=== PATIENT | female | born 1985 | race Caucasian/White ===

== ENCOUNTER 2017-01-08 15:10 | Inpatient (IN) | payer BC, OTHER ==
[~2017-01-08] VITALS: Ht 170.2 cm; Wt 54.0 kg
[2017-01-08 15:16] VITALS: BP_SYST 132
[2017-01-08] MEDS ORDERED: NACL 0.9% 1,000 ML IV ONE (15:53)
[2017-01-08] MEDS ORDERED: ONDANSETRON HCL 4 MG/2 ML VIAL IVP ONE (16:00)
[2017-01-08] MEDS ORDERED: DIPHENHYDRAMINE INJ 50 MG/ML VIAL IVP ONE (16:00)
[2017-01-08] MEDS ORDERED: MORPHINE 4 MG/ML INJ. SYRINGE IVP ONE (16:00)
[2017-01-08 16:11] LABS: BASOPHILS # (AUTO) 0.1 K/uL (0.0-0.2); BASOPHILS % (AUTO) 1.1 % (0.0-2.0); EOSINOPHILS # (AUTO) 0.1 K/uL (0.0-0.4); EOSINOPHILS % (AUTO) 1.1 % (0.0-4.0); HEMATOCRIT 39.8 % (36-48); HEMOGLOBIN 13.6 g/dL (12.0-16.0); LYMPHOCYTES # (AUTO) 1.4 K/uL (1.0-5.5); LYMPHOCYTES % (AUTO) 24.2 % (20.5-51.5); MEAN CORPUSCULAR HEMOGLOBIN 31 pg (27-31); MEAN CORPUSCULAR HGB CONC 34 % (32-36); MEAN CORPUSCULAR VOLUME 89 fL (79.0-98.0); MONOCYTES # (AUTO) 0.5 K/uL (0.0-1.0); MONOCYTES % (AUTO) 8.6 % (1.7-9.3); NEUTROPHILS # (AUTO) 3.7 K/uL (1.8-7.7); PLATELET COUNT (AUTO) 177 K/uL (130-430); RED BLOOD CELL COUNT(AUTO) 4.46 MIL/uL (4.2-6.2); RED CELL DISTRIBUTION WIDTH 12.4 % (9.0-15.0); WHITE BLOOD COUNT (AUTO) 5.8 K/uL (4.8-10.8)
[2017-01-08 16:23] LABS: CALCIUM 8.9 mg/dL (8.4-11.0); CREATININE 0.52 mg/dL (0.55-1.30)
[2017-01-08 16:27] LABS: ALBUMIN 4.3 g/dL (3.4-4.8)
[2017-01-08 16:34] LABS: BILIRUBIN,URINE 1+ (NEGATIVE); BLOOD, URINE 1+ (NEGATIVE); CLARITY/URINE HAZY (CLEAR); COLOR,URINE YELLOW (YELLOW); GLUCOSE,URINE NEGATIVE (NEGATIVE); KETONES,URINE 3+ (NEGATIVE); LEUKOCYTE ESTERASE ,URINE TRACE (NEGATIVE); NITRITE, URINE NEGATIVE (NEGATIVE); PH,URINE 6.5 (5.0-8.0); PROTEIN URINE NEGATIVE (NEGATIVE)
[2017-01-08] MEDS ORDERED: HYDROmorphone 1 MG INJ. 1 MG/ML AMPUL IVP ONE (16:45)
[2017-01-08] MEDS ORDERED: POTASSIUM CHLORIDE 20 MEQ/PKT PACKET PO ONE (16:45)
[2017-01-08 17:11] LABS: BACTERIA,URINE FEW /HPF (None Seen); MUCUS,URINE 3+ /LPF (None Seen)
[2017-01-08 17:12] LABS: YEAST,URINE Few /HPF (None Seen)
[2017-01-08] MEDS ORDERED: DICYCLOMINE HCL 20 MG/2 ML AMP IM ONE (18:00)
[2017-01-08] MEDS ORDERED: cefTRIAXone 1 GM in D5W 50 ML IV ONE (19:00)
[2017-01-08] MEDS ORDERED: cefTRIAXone 1 GM VIAL ONE (19:16)
[2017-01-08] MEDS ORDERED: ACETAMINOPHEN 325 MG TABLET PO PRN (19:30)
[2017-01-08 19:38] VITALS: BP_SYST 138
[2017-01-08] MEDS ORDERED: LOPERAMIDE HCL 2 MG CAPSULE PO PRN (19:45)
[2017-01-08] MEDS: HYDROmorphone 1 MG INJ. 1 MG/ML AMPUL IVP PRN (20:30)
[2017-01-08] MEDS: FAMOTIDINE 20 MG TABLET PO SCH (20:31)
[2017-01-08] MEDS: POTASSIUM CHLORIDE 20 MEQ TAB.PRT.SR PO SCH (20:31)
[2017-01-08] MEDS: metroNIDAZOLE 250 MG TABLET PO SCH (20:31)
[2017-01-08] MEDS: sulfASALAZINE 500 MG TABLET (AZULFIDINE) PO SCH (20:31)
[2017-01-08] MEDS: LACTOBACILLUS RHAMNOSUS GG 1 CAP CAPSULE PO SCH (20:31)
[2017-01-08] MEDS: LR 1,000 ML IV SCH (20:32)
[2017-01-08] MEDS: ONDANSETRON HCL 4 MG/2 ML VIAL IVP PRN (20:45)
[2017-01-09] MEDS: DIPHENHYDRAMINE INJ 50 MG/ML VIAL IVP PRN ×4 (00:09→21:33)
[2017-01-09] MEDS: sulfASALAZINE 500 MG TABLET (AZULFIDINE) PO SCH ×5 (00:09→23:14)
[2017-01-09 00:42] VITALS: BP_SYST 122
[2017-01-09 04:32] VITALS: BP_SYST 136
[2017-01-09] MEDS: ONDANSETRON HCL 4 MG/2 ML VIAL IVP PRN ×2 (04:48→16:03)
[2017-01-09] MEDS: HYDROmorphone 1 MG INJ. 1 MG/ML AMPUL IVP PRN ×5 (04:49→23:10)
[2017-01-09 06:37] LABS: BASOPHILS % (AUTO) 0.4 % (0.0-2.0); EOSINOPHILS # (AUTO) 0.1 K/uL (0.0-0.4); EOSINOPHILS % (AUTO) 1.9 % (0.0-4.0); HEMATOCRIT 35.8 % (36-48); HEMOGLOBIN 12.5 g/dL (12.0-16.0); LYMPHOCYTES # (AUTO) 1.1 K/uL (1.0-5.5); LYMPHOCYTES % (AUTO) 20.4 % (20.5-51.5); MEAN CORPUSCULAR HEMOGLOBIN 31 pg (27-31); MEAN CORPUSCULAR HGB CONC 35 % (32-36); MEAN CORPUSCULAR VOLUME 89 fL (79.0-98.0); MONOCYTES # (AUTO) 0.5 K/uL (0.0-1.0); MONOCYTES % (AUTO) 8.2 % (1.7-9.3); NEUTROPHILS # (AUTO) 3.9 K/uL (1.8-7.7); NEUTROPHILS % (AUTO) 69.1 % (40.0-70.0); PLATELET COUNT (AUTO) 150 K/uL (130-430); RED BLOOD CELL COUNT(AUTO) 4.01 MIL/uL (4.2-6.2); RED CELL DISTRIBUTION WIDTH 12.5 % (9.0-15.0); WHITE BLOOD COUNT (AUTO) 5.6 K/uL (4.8-10.8)
[2017-01-09 06:48] LABS: ALBUMIN 3.6 g/dL (3.4-4.8); CREATININE 0.49 mg/dL (0.55-1.30); THYROID STIMULATING HORMONE 0.56 uIu/mL (0.34-4.82); TOTAL BILIRUBIN 0.9 mg/dL (0.0-1.0)
[2017-01-09 08:15] VITALS: BP_SYST 121
[2017-01-09] MEDS: LR 1,000 ML IV SCH ×2 (08:56→21:28)
[2017-01-09] MEDS: LACTOBACILLUS RHAMNOSUS GG 1 CAP CAPSULE PO SCH ×2 (09:00→22:59)
[2017-01-09] MEDS: metroNIDAZOLE 250 MG TABLET PO SCH ×4 (09:00→22:59)
[2017-01-09] MEDS: POTASSIUM CHLORIDE 20 MEQ TAB.PRT.SR PO SCH ×4 (09:00→22:59)
[2017-01-09] MEDS: FAMOTIDINE 20 MG TABLET PO SCH ×2 (09:00→22:59)
[2017-01-09 09:24] LABS: ERYTHROCYTE SEDIMENTATION RATE 2 MM/HR (0-20)
[2017-01-09] MEDS ORDERED: MAGNESIUM SULFATE 50 ML IV ONE (12:00)
[2017-01-09] MEDS ORDERED: CHOLECALCIFEROL (VITAMIN D3) 2,000 UNIT TABLET PO ONE (14:00)
[2017-01-09] MEDS ORDERED: PANTOPRAZOLE SODIUM 40 MG/VIAL (PROTONIX) IVP ONE (14:00)
[2017-01-09 18:11] VITALS: BP_SYST 126
[2017-01-09 20:00] VITALS: BP_SYST 130
[2017-01-09] MEDS ORDERED: ONDANSETRON HCL 4 MG/2 ML VIAL IVP ONE (21:10)
[2017-01-09] MEDS: PANTOPRAZOLE SODIUM 40 MG/VIAL (PROTONIX) IVP SCH (21:33)
[2017-01-10 00:27] VITALS: BP_SYST 117
[2017-01-10] MEDS: LR 1,000 ML IV SCH ×3 (01:45→21:17)
[2017-01-10] MEDS: ONDANSETRON HCL 4 MG/2 ML VIAL IVP PRN ×3 (03:58→18:13)
[2017-01-10] MEDS: HYDROmorphone 1 MG INJ. 1 MG/ML AMPUL IVP PRN ×4 (03:59→18:17)
[2017-01-10 04:00] VITALS: BP_SYST 134
[2017-01-10] MEDS: DIPHENHYDRAMINE INJ 50 MG/ML VIAL IVP PRN ×3 (04:28→21:25)
[2017-01-10 06:49] LABS: BASOPHILS % (AUTO) 0.4 % (0.0-2.0); EOSINOPHILS # (AUTO) 0.1 K/uL (0.0-0.4); EOSINOPHILS % (AUTO) 1.8 % (0.0-4.0); HEMATOCRIT 36.5 % (36-48); HEMOGLOBIN 12.6 g/dL (12.0-16.0); LYMPHOCYTES % (AUTO) 17.6 % (20.5-51.5); MEAN CORPUSCULAR HEMOGLOBIN 31 pg (27-31); MEAN CORPUSCULAR HGB CONC 35 % (32-36); MEAN CORPUSCULAR VOLUME 88 fL (79.0-98.0); MONOCYTES # (AUTO) 0.5 K/uL (0.0-1.0); MONOCYTES % (AUTO) 8.8 % (1.7-9.3); NEUTROPHILS # (AUTO) 3.9 K/uL (1.8-7.7); NEUTROPHILS % (AUTO) 71.4 % (40.0-70.0); PLATELET COUNT (AUTO) 159 K/uL (130-430); RED BLOOD CELL COUNT(AUTO) 4.14 MIL/uL (4.2-6.2); RED CELL DISTRIBUTION WIDTH 12.1 % (9.0-15.0); WHITE BLOOD COUNT (AUTO) 5.5 K/uL (4.8-10.8)
[2017-01-10 06:58] LABS: ANION GAP 8 (5-15); CHLORIDE 102 mmol/L (98-107); CREATININE 0.47 mg/dL (0.55-1.30); GLUCOSE 87 mg/dL (70-99); POTASSIUM 3.5 mmol/L (3.5-5.1); SODIUM SERUM 137 mmol/L (136-145); UREA NITROGEN, BLOOD 2 mg/dL (8-21)
[2017-01-10 07:19] LABS: GFR AFRICAN AMERICAN 200 mL/min (>90)
[2017-01-10 07:20] LABS: C-REACTIVE PROTEIN QUANT < 0.2 mg/dL (0-0.5)
[2017-01-10 08:00] VITALS: BP_SYST 115
[2017-01-10] MEDS: LACTOBACILLUS RHAMNOSUS GG 1 CAP CAPSULE PO SCH ×2 (08:52→21:18)
[2017-01-10] MEDS: CHOLECALCIFEROL (VITAMIN D3) 2,000 UNIT TABLET PO SCH (08:54)
[2017-01-10] MEDS: PANTOPRAZOLE SODIUM 40 MG/VIAL (PROTONIX) IVP SCH ×2 (08:55→21:18)
[2017-01-10] MEDS: metroNIDAZOLE 250 MG TABLET PO SCH ×4 (08:55→21:19)
[2017-01-10] MEDS: FAMOTIDINE 20 MG TABLET PO SCH ×2 (09:00→21:18)
[2017-01-10] MEDS: POTASSIUM CHLORIDE 20 MEQ TAB.PRT.SR PO SCH ×4 (09:01→21:18)
[2017-01-10] MEDS: sulfASALAZINE 500 MG TABLET (AZULFIDINE) PO SCH ×2 (12:15→18:11)
[2017-01-10 12:37] VITALS: BP_SYST 127
[2017-01-10 16:37] VITALS: BP_SYST 133
[2017-01-10 20:00] VITALS: BP_SYST 133
[2017-01-11] VITALS (7 sets, daily range): BP systolic 101–129
[2017-01-11] MEDS: ONDANSETRON HCL 4 MG/2 ML VIAL IVP PRN (00:29)
[2017-01-11] MEDS: sulfASALAZINE 500 MG TABLET (AZULFIDINE) PO SCH ×3 (00:29→12:15)
[2017-01-11] MEDS: HYDROmorphone 1 MG INJ. 1 MG/ML AMPUL IVP PRN ×3 (00:30→10:14)
[2017-01-11] MEDS: DIPHENHYDRAMINE INJ 50 MG/ML VIAL IVP PRN (04:45)
[2017-01-11] MEDS: LR 1,000 ML IV SCH (06:55)
[2017-01-11] MEDS: LACTOBACILLUS RHAMNOSUS GG 1 CAP CAPSULE PO SCH (09:09)
[2017-01-11] MEDS: PANTOPRAZOLE SODIUM 40 MG/VIAL (PROTONIX) IVP SCH (09:09)
[2017-01-11] MEDS: CHOLECALCIFEROL (VITAMIN D3) 2,000 UNIT TABLET PO SCH (09:09)
[2017-01-11] MEDS: metroNIDAZOLE 250 MG TABLET PO SCH ×2 (09:10→12:15)
[2017-01-11] MEDS: FAMOTIDINE 20 MG TABLET PO SCH (09:10)
[2017-01-11] MEDS: POTASSIUM CHLORIDE 20 MEQ TAB.PRT.SR PO SCH ×2 (09:10→12:15)
[2017-01-11 13:33] LABS: BILIRUBIN,URINE NEGATIVE (NEGATIVE); BLOOD, URINE 1+ (NEGATIVE); CLARITY/URINE CLEAR (CLEAR); COLOR,URINE YELLOW (YELLOW); GLUCOSE,URINE NEGATIVE (NEGATIVE); KETONES,URINE TRACE (NEGATIVE); LEUKOCYTE ESTERASE ,URINE NEGATIVE (NEGATIVE); NITRITE, URINE NEGATIVE (NEGATIVE); PROTEIN URINE NEGATIVE (NEGATIVE); UROBILINOGEN,URINE 0.2 (0.2-1.0)
[2017-01-11 13:59] LABS: BACTERIA,URINE FEW /HPF (None Seen); MUCUS,URINE 1+ /LPF (None Seen); WBC,URINE 0-3 /HPF (0-3)
== END 2017-01-11 14:48 | disposition home or self-care (01) | DRG 392 ==
LOC: SED 15:10 → SMU 19:03
PROVIDERS: ADMIT Internal Medicine; ATTEND Internal Medicine
DX: K52.9 Noninfective gastroenteritis and colitis, unspecified (principal); E87.6 Hypokalemia; N39.0 Urinary tract infection, site not specified; N20.0 Calculus of kidney; K58.9 Irritable bowel syndrome, unspecified; G89.29 Other chronic pain; Z88.6 Allergy status to analgesic agent; Z90.49 Acquired absence of other specified parts of digestive tract
CPT/HCPCS: 36415; 80048; 80053; 81000-TC; 81025; 83605; 83690-TC; 83735-TC; 84443-TC; 85025; 85651-TC; 86140; 87040-TC; 87086; 96361; 96365; 96372; 96375; 99285; C9113; J0500; J0696; J1170; J1200; J2270; J2405; J3475; J7030; J7060; J7120